=== PATIENT | female | born 1980 | race Caucasian/White ===

== ENCOUNTER 2017-10-16 14:51 | Inpatient (IN) | payer BC, OTHER ==
[2017-10-16] MEDS: Iopamidol 612 MG/ML 75 ML Bottle IV ONE (15:00)
[2017-10-16] MEDS ORDERED: Sodium Chloride 0.9% 5 ML Syringe FLUSH PRN ×2 (15:02→18:13)
[2017-10-16] MEDS ORDERED: Sodium Chloride 0.9% 1,000 ML IV ONE (15:02)
[2017-10-16] MEDS ORDERED: Ondansetron 4 MG/2 ML SDV IVPUSH ONE (15:13)
[2017-10-16] MEDS ORDERED: HYDROmorphone 1 MG/ML Syringe IVPUSH ONE (15:13)
--- NOTE | 2017-10-16 15:13 | EDM.PDOC ---
ED HPI GENERAL MEDICAL PROBLEM - General Chief Complaint: Gastrointestinal Problem Stated Complaint: Abdominal pain Time Seen by Provider: 10/16/17 15:03 Source of Information: Reports: Patient History Limitations: Reports: No Limitations - History of Present Illness INITIAL COMMENTS - FREE TEXT/NARRATIVE: 37 YO WF presents to ER complaining of epigastric abdominal pain with bloating and radiation to her back. Pt reports symptoms began last night. Pt states she had associated nausea and vomiting x 2. Pt reports history of pancreatitis in the pasted due to cholecystitis but she is s/p cholecystectomy. Pt states her adbominal pain is similar to pancreatitis but bloating is different. Pt states she took gasX and ducolax suppository without improvement. Pt denies any fever/ chills, no diarrhea. Last normal bowel movement was yesterday. Onset Date: 10/15/17 Duration: Day(s): (2) Location: Reports: Abdomen Quality: Reports: Ache Severity: Moderate Improves with: Reports: Rest Worsens with: Reports: Breathing, Eating, Movement Associated Symptoms: Reports: Nausea/Vomiting. Denies: Chest Pain, Cough, cough w sputum, Fever/Chills, Shortness of Breath Middle Abdominal Pain Score (Numeric/FACES): 10 - Related Data Allergies Allergy/AdvReac Type Severity Reaction Status Date / Time codeine Allergy Nausea and Verified 10/16/17 15:33 Vomiting Sulfa (Sulfonamide Allergy Rash Verified 10/16/17 15:33 Antibiotics) Home Meds: Home Meds Escitalopram [Lexapro] 20 mg PO BEDTIME 03/17/16 [History] metFORMIN [Glucophage] 750 mg PO BIDMEALS@,18 03/17/16 [History] Simvastatin 10 mg PO BEDTIME 07/19/16 [History] Ubidecarenone [Co Q-10] 100 mg PO BEDTIME 07/19/16 [History] sitaGLIPtin Phosphate [Januvia] 100 mg PO BEDTIME 07/19/16 [History] Aspirin [Ecotrin] 81 mg PO BEDTIME 10/16/17 [History] Lisinopril 20 mg PO BEDTIME 10/16/17 [History] Metoprolol Succinate [Toprol XL] 25 mg PO BEDTIME 10/16/17 [History] Norgestimate-Ethinyl Estradiol [Ortho Tri-Cyclen 28 Tablet] 1 tab PO BEDTIME [History] Past Medical History HEENT History: Reports: Impaired Vision Cardiovascular History: Reports: Blood Clots/VTE/DVT, High Cholesterol, Hypertension, Other (See Below) Other Cardiovascular History: blood clots in arm pit s/p picc line Respiratory History: Reports: Asthma Gastrointestinal History: Reports: Cholelithiasis, GERD, Hemorrhoids, Pancreatitis, Other (See Below) Other Gastrointestinal History: fatty liver (none etol related) Genitourinary History: Reports: UTI, Recurrent [employer]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: Reports: Polycystic Ovaries Musculoskeletal History: Reports: Fracture Neurological History: Reports: Migraines Psychiatric History: Reports: Depression Endocrine/Metabolic History: Reports: Diabetes, Type II - Infectious Disease History Infectious Disease History: Reports: Chicken Pox, Influenza, Mononucleosis - Past Surgical History HEENT Surgical History: Reports: Other (See Below) Musculoskeletal Surgical History: Reports: Arthroscopic Procedure Social & Family History - Tobacco Use Smoking Status *Q: Never Smoker Second Hand Smoke Exposure: Yes - Caffeine Use Caffeine Use: Reports: Coffee, Soda - Recreational Drug Use Recreational Drug Use: No ED ROS GENERAL - Review of Systems Review Of Systems: See Below Constitutional: Reports: No Symptoms, Decreased Appetite HEENT: Reports: No Symptoms Respiratory: Reports: No Symptoms Cardiovascular: Reports: No Symptoms Endocrine: Reports: No Symptoms GI/Abdominal: Reports: Abdominal Pain, Constipation, Decreased Appetite, Distension, Nausea, Vomiting. Denies: Black Stool, Bloody Stool, Diarrhea, Hematemesis, Hematochezia Musculoskeletal: Reports: No Symptoms Skin: Reports: No Symptoms Neurological: Reports: No Symptoms Psychiatric: Reports: No Symptoms Hematologic/Lymphatic: Reports: No Symptoms Immunologic: Reports: No Symptoms ED EXAM, GI/ABD - Physical Exam Exam: See Below Exam Limited By: No Limitations General Appearance: Alert, WD/WN, No Apparent Distress Head: Atraumatic, Normocephalic Neck: Normal Inspection, Supple, Non-Tender, Full Range of Motion Respiratory/Chest: No Respiratory Distress, Lungs Clear, Normal Breath Sounds, No Accessory Muscle Use, Chest Non-Tender Cardiovascular: Normal Peripheral Pulses, Regular Rate, Rhythm, No Edema, No Gallop, No JVD, No Murmur, No Rub GI/Abdominal Exam: Soft, No Organomegaly, No Abnormal Bruit, No Mass, Pelvis Stable, Distended, Tender (generalized but worse in epigastrium), Other ( hypoactive bowel sounds). No: Normal Bowel Sounds, Non-Tender, No Distention Back Exam: Normal Inspection, Full Range of Motion, NT Extremities: Normal Inspection, Normal Range of Motion, Non-Tender, Normal Capillary Refill, No Pedal Edema Neurological: Alert, Oriented, CN II-XII Intact, Normal Cognition, Normal Gait, Normal Reflexes, No Motor/Sensory Deficits Course - Vital Signs Last Recorded V/S: Last Vital Signs Temp 36.6 C 10/16/17 15:30 Pulse 122 H 10/16/17 15:30 Resp 16 10/16/17 15:30 BP 140/84 10/16/17 15:30 Pulse Ox 97 10/16/17 15:30 - Orders/Labs/Meds Orders: Active Orders 24 hr Category Date Time Status Peripheral IV Care [RC] . DIRECTED Care 10/16/17 15:02 Active Abdomen Pelvis w Cont [CT] Stat Exams 10/16/17 15:13 Taken UA W/MICROSCOPIC [URIN] Stat Lab 10/16/17 15:42 Ordered Sodium Chloride 0.9% [Normal Saline] 50 ml Med 10/16/17 16:00 Active IV ASDIRECTED Sodium Chloride 0.9% [Syrex Flush] Med 10/16/17 15:02 Active 5 ml FLUSH Q8HR PRN Peripheral IV Insertion Adult [OM.PC] Routine Oth 10/16/17 15:02 Ordered Medication Orders Sodium Chloride (Normal Saline) 50 mls @ 200 mls/hr IV ASDIRECTED ABRAHAM Sodium Chloride (Syrex Flush) 5 ml FLUSH Q8HR PRN PRN Reason: Keep Vein Open Labs: Laboratory Tests 10/16/17 10/16/17 10/16/17 Range/Units 15:15 15:15 15:42 WBC 19.4 H (5.0-10.0) 10^3/uL RBC 5.17 (3.80-5.50) 10^6/uL Hgb 14.8 (12.0-16.0) g/dL Hct 43.9 (37.0-47.0) % MCV 84.9 D (82.0-92.0) fL MCH 28.6 (27.0-31.0) pg MCHC 33.7 (32.0-36.0) g/dL RDW 14.5 (11.5-14.5) % Plt Count 309 H D (150-300) 10^3/uL MPV 8.2 (7.4-10.4) fL Neut % (Auto) 72.3 H (50.0-70.0) % Lymph % (Auto) 22.4 (20.0-40.0) % Amelia % (Auto) 3.6 (2.0-8.0) % Eos % (Auto) 1.1 (1.0-3.0) % Baso % (Auto) 0.6 (0.0-1.0) % Neut # (Auto) 14.1 H (2.5-7.0) 10^3/uL Lymph # (Auto) 4.3 H (1.0-4.0) 10^3/uL Amelia # (Auto) 0.7 (0.1-0.8) 10^3/uL Eos # (Auto) 0.2 (0.1-0.3) 10^3/uL Baso # (Auto) 0.1 (0.0-0.1) 10^3/uL Sodium 143 (136-145) mmol/L Potassium 4.0 (3.3-5.3) mmol/L Chloride 102 (98-115) mmol/L Carbon Dioxide 23.4 (21.0-32.0) mmol/L BUN 9 (6-25) mg/dL Creatinine 0.57 (0.51-1.17) mg/dL Est Cr Clr Drug Dosing 134.99 mL/min Estimated GFR (MDRD) > 60 mL/min Glucose 160 H (70-110) mg/dL Calcium 9.4 (8.7-10.3) mg/dL Total Bilirubin 0.6 (0.2-1.0) mg/dL AST 23 (15-37) U/L ALT 21 (12-78) U/L Alkaline Phosphatase 69 (46-116) IU/L Total Protein 8.5 H (6.4-8.2) g/dL Albumin 3.53 (3.00-4.80) g/dL Lipase 144 (73-393) U/L HCG, Qual Negative (NEGATIVE) Specimen Type Urinvoid Urine Color Yellow (YELLOW) Urine Appearance Slightly cloudy H (CLEAR) Urine pH 5.5 (5.0-9.0) Ur Specific [place] >= 1.030 (1.005-1.030) Urine Protein 30 H (NEGATIVE) mg/dL Urine Glucose (UA) Negative (NEGATIVE) mg/dL Urine Ketones 40 H (NEGATIVE) mg/dL Urine Occult Blood Trace-intact H (NEGATIVE) Urine Nitrite Negative (NEGATIVE) Urine Bilirubin Small H (NEGATIVE) Urine Urobilinogen 0.2 (0.2-1.0) E.U./dL Ur Leukocyte Esterase Negative (NEGATIVE) Urine RBC 0-5 /HPF Urine WBC 5-10 H /HPF Ur Epithelial Cells Moderate H /LPF Amorphous Sediment Few (0/HPF) /HPF Urine Bacteria Moderate H (NONE TO FEW) /HPF Meds: Medications Generic Name Dose Route Start Last Admin Trade Name Freq PRN Reason Stop Dose Admin Sodium Chloride 50 mls @ 200 mls/hr 10/16/17 16:00 Normal Saline IV ASDIRECTED ABRAHAM Sodium Chloride 5 ml 10/16/17 15:02 Syrex Flush FLUSH Q8HR PRN Keep Vein Open Discontinued Medications Generic Name Dose Route Start Last Admin Trade Name Freq PRN Reason Stop Dose Admin Hydromorphone HCl 1 mg 10/16/17 15:13 10/16/17 15:25 Dilaudid IVPUSH 10/16/17 15:14 1 mg ONETIME ONE Administration Sodium Chloride 1,000 mls @ 999 mls/hr 10/16/17 15:02 10/16/17 15:18 Normal Saline IV 10/16/17 16:02 999 mls/hr .BOLUS ONE Administration Iopamidol 75 ml 10/16/17 15:59 Isovue-300 (61%) IV 10/16/17 16:00 ONETIME ONE Ondansetron HCl 4 mg 10/16/17 15:13 10/16/17 15:19 Zofran IVPUSH 10/16/17 15:14 4 mg ONETIME ONE Administration - Radiology Interpretation Free Text/Narrative:: CT Abd/Pelvis- enteritis, and mild retrosigmoid colitis. Departure - Departure Time of Disposition: 18:11 Disposition: Admitted As Inpatient 65 Condition: Fair Clinical Impression: Gastroenteritis, Colitis Urinary tract infection Qualifiers: Urinary tract infection type: acute cystitis Hematuria presence: without hematuria Qualified Code(s): N30.00 - Acute cystitis without hematuria - Discharge Information Referrals: Eryn Bar, THERM[facility]OLDER [Primary Care Provider] - Forms: ED Department Discharge - My Orders Last 24 Hours: My Active Orders 10/16/17 15:02 Peripheral IV Care [RC] . DIRECTED Sodium Chloride 0.9% [Syrex Flush] 5 ml FLUSH Q8HR PRN Peripheral IV Insertion Adult [OM.PC] Routine 10/16/17 15:13 Abdomen Pelvis w Cont [CT] Stat 10/16/17 15:42 UA W/MICROSCOPIC [URIN] Stat 10/16/17 16:00 Sodium Chloride 0.9% [Normal Saline] 50 ml IV ASDIRECTED - Assessment/Plan Last 24 Hours: My Active Orders 10/16/17 15:02 Peripheral IV Care [RC] . DIRECTED Sodium Chloride 0.9% [Syrex Flush] 5 ml FLUSH Q8HR PRN Peripheral IV Insertion Adult [OM.PC] Routine 10/16/17 15:13 Abdomen Pelvis w Cont [CT] Stat 10/16/17 15:42 UA W/MICROSCOPIC [URIN] Stat 10/16/17 16:00 Sodium Chloride 0.9% [Normal Saline] 50 ml IV ASDIRECTED Assessment:: 1. enteritis 2. colitis 3. urinary tract infection Plan: 1. admit to [facility] for colitis 2. flagyl/cipro 3. dilaudid/zofran 4. IVF/NPO
[2017-10-16 15:42] LABS: CHLORIDE,CL 102 mmol/L (98-115); SODIUM,NA 143 mmol/L (136-145)
[2017-10-16] MEDS ORDERED: Sodium Chloride 0.9% 50 ML IV SCH (16:00)
[2017-10-16] MEDS ORDERED: Ondansetron 4 MG/2 ML SDV IV PRN (18:13)
[2017-10-16] MEDS ORDERED: HYDROmorphone 2 MG/ML SDV IVPUSH PRN (18:13)
[2017-10-16] MEDS ORDERED: metroNIDAZOLE/Normal Saline 500 MG in Premix Bag 1 BAG IV SCH (18:15)
[2017-10-16] MEDS ORDERED: HYDROmorphone 1 MG/ML Syringe IVPUSH PRN ×2 (18:48→19:37)
[2017-10-16] MEDS: Ciprofloxacin in D5W 400 MG in Premix Bag 1 BAG IV SCH ×2 (19:00)
[2017-10-16] MEDS: Sodium Chloride 0.9% 1,000 ML IV SCH (19:07)
[2017-10-16] MEDS ORDERED: Ondansetron 4 MG Tab.DIS PO PRN (19:36)
[2017-10-16] MEDS: Metoprolol Succinate 25 MG Tab.ER PO SCH (21:42)
[2017-10-16] MEDS: Escitalopram 10 MG Tab PO SCH (21:42)
[2017-10-16] MEDS: Lisinopril 20 MG Tab PO SCH (21:42)
[2017-10-16] MEDS: Simvastatin 10 MG Tab PO SCH (21:43)
[2017-10-17] MEDS: metroNIDAZOLE/Normal Saline 500 MG in Premix Bag 1 BAG IV SCH ×3 (03:24→19:49)
[2017-10-17] MEDS: Ciprofloxacin in D5W 400 MG in Premix Bag 1 BAG IV SCH ×4 (05:46→18:16)
[2017-10-17] MEDS: Sodium Chloride 0.9% 1,000 ML IV SCH (05:53)
[2017-10-17] MEDS: Iopamidol 612 MG/ML 75 ML Bottle IV ONE (07:16)
[2017-10-17 07:45] LABS: CHLORIDE,CL 107 mmol/L (98-115); SODIUM,NA 144 mmol/L (136-145)
--- NOTE | 2017-10-17 11:05 | PCM.HP ---
H&P History of Present Illness - General Date of Service: 10/16/17 Admit Problem/Dx: Admission Diagnosis/Problem Admission Diagnosis/Problem Colitis Source of Information: Patient, Provider, RN History Limitations: Reports: No Limitations - History of Present Illness Initial Comments - Free Text/Narative: This 37-year-old female was admitted through the ED due to colitis/enteritis. She been having 1 day abdominal pain with abdominal distention boring through into her back as she does have a history of biliary induced pancreatitis-- subsequent cholecystectomy and she felt this was very similar type pain. She stated her symptoms began last night when she vomited a couple times and she had some nausea. She took OTC gas-X and ducolax suppository without improvement. Pt denies any fever/chills, no diarrhea. Last normal bowel movement was yesterday. Middle Abdominal Pain Score (Numeric/FACES): 10 - Related Data Allergies/Adverse Reactions: Allergies Allergy/AdvReac Type Severity Reaction Status Date / Time codeine Allergy Nausea and Verified 10/16/17 15:33 Vomiting Sulfa (Sulfonamide Allergy Rash Verified 10/16/17 15:33 Antibiotics) Home Medications: Home Meds Escitalopram [Lexapro] 20 mg PO BEDTIME 03/17/16 [History] metFORMIN [Glucophage] 750 mg PO BIDMEALS@,18 03/17/16 [History] Simvastatin 10 mg PO BEDTIME 07/19/16 [History] Ubidecarenone [Co Q-10] 100 mg PO BEDTIME 07/19/16 [History] sitaGLIPtin Phosphate [Januvia] 100 mg PO BEDTIME 07/19/16 [History] Aspirin [Ecotrin] 81 mg PO BEDTIME 10/16/17 [History] Lisinopril 20 mg PO BEDTIME 10/16/17 [History] Metoprolol Succinate [Toprol XL] 25 mg PO BEDTIME 10/16/17 [History] Norgestimate-Ethinyl Estradiol [Ortho Tri-Cyclen 28 Tablet] 1 tab PO BEDTIME [History] Ciprofloxacin HCl [Cipro] 500 mg PO BID #8 tablet 10/18/17 [Rx] metroNIDAZOLE [Flagyl] 500 mg PO Q8H #9 tab 10/18/17 [Rx] Past Medical History HEENT History: Reports: Impaired Vision Cardiovascular History: Reports: Blood Clots/VTE/DVT, High Cholesterol, Hypertension, Other (See Below) Other Cardiovascular History: blood clots in arm pit s/p picc line Respiratory History: Reports: Asthma Gastrointestinal History: Reports: Cholelithiasis, GERD, Hemorrhoids, Pancreatitis, Other (See Below) Other Gastrointestinal History: fatty liver (none etol related) Genitourinary History: Reports: UTI, Recurrent 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: 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: Polycystic Ovaries Musculoskeletal History: Reports: Fracture Neurological History: Reports: Migraines Psychiatric History: Reports: Depression Endocrine/Metabolic History: Reports: Diabetes, Type II Hematologic History: Reports: Anesthesia Reaction - Infectious Disease History Infectious Disease History: Reports: Chicken Pox, Influenza, Mononucleosis - Past Surgical History Head Surgeries/Procedures: Reports: None HEENT Surgical History: Reports: Other (See Below) Musculoskeletal Surgical History: Reports: Arthroscopic Procedure Dermatological Surgical History: Reports: None Social & Family History - Family History HEENT: Reports: None Cardiac: Reports: None Respiratory: Reports: None GI: Reports: None : Reports: None OBGYN: Reports: None Neurological: Reports: None Endocrine/Metabolic: Reports: Diabetes, type II - Tobacco Use Smoking Status *Q: Never Smoker Second Hand Smoke Exposure: Yes - Caffeine Use Caffeine Use: Reports: Coffee, Soda - Recreational Drug Use Recreational Drug Use: No H&P Review of Systems - Review of Systems: Review Of Systems: See Below General: Reports: Decreased Appetite. Denies: Fever, Malaise, Weakness, Night Sweats HEENT: Reports: No Symptoms Pulmonary: Reports: No Symptoms Cardiovascular: Reports: No Symptoms Gastrointestinal: Reports: Abdominal Pain, Anorexia, Constipation, Decreased Appetite, Distension, Nausea, Vomiting. Denies: Diarrhea Genitourinary: Denies: Dysuria, Frequency, Incontinence, Hematuria, Retention Musculoskeletal: Reports: No Symptoms Skin: Reports: Dryness Psychiatric: Reports: No Symptoms Neurological: Reports: No Symptoms Hematologic/Lymphatic: Reports: No Symptoms Immunologic: Reports: No Symptoms Exam - Exam Exam: See Below - Vital Signs Vital Signs: Last Vital Signs Temp 99.5 F 10/17/17 06:34 Pulse 72 10/17/17 06:34 Resp 18 10/17/17 06:34 BP 100/60 10/17/17 06:34 Pulse Ox 96 10/17/17 06:34 Weight: 193 lb 8 oz - Exam Quality Assessment: No: Supplemental Oxygen General: Alert, Oriented, 4 HEENT: Other (Dry lips dry tongue mucous membranes) Neck: Supple, Trachea Midline, 2 Lungs: Clear to Auscultation, Normal Respiratory Effort Cardiovascular: Regular Rate, Regular Rhythm GI/Abdominal Exam: No Mass, Distended, Tender. No: Normal Bowel Sounds, Soft, Guarding, Rigid, Rebound, Splenomegaly (Female) Exam: Deferred Rectal (Female) Exam: Deferred Back Exam: No: CVA Tenderness (L), CVA Tenderness (R) Extremities: No Pedal Edema Peripheral Pulses: 2+: Radial (L), Radial (R) Skin: Dry. No: Rash Neurological: Cranial Nerves Intact, Reflexes Equal Bilateral Neuro Extensive - Mental Status: Alert, Oriented x3, Normal Mood/Affect, Normal Cognition Neuro Extensive - Motor, Sensory, Reflexes: CN II-XII Intact, Normal Gait, Normal Reflexes Psychiatric: Alert, Normal Affect, Normal Mood - Patient Data Lab Results Last 24 hrs: Laboratory Results - last 24 hr 10/16/17 10/16/17 10/16/17 Range/Units 15:15 15:15 15:42 WBC 19.4 H (5.0-10.0) 10^3/uL RBC 5.17 (3.80-5.50) 10^6/uL Hgb 14.8 (12.0-16.0) g/dL Hct 43.9 (37.0-47.0) % MCV 84.9 D (82.0-92.0) fL MCH 28.6 (27.0-31.0) pg MCHC 33.7 (32.0-36.0) g/dL RDW 14.5 (11.5-14.5) % Plt Count 309 H D (150-300) 10^3/uL MPV 8.2 (7.4-10.4) fL Neut % (Auto) 72.3 H (50.0-70.0) % Lymph % (Auto) 22.4 (20.0-40.0) % Bradley % (Auto) 3.6 (2.0-8.0) % Eos % (Auto) 1.1 (1.0-3.0) % Baso % (Auto) 0.6 (0.0-1.0) % Neut # (Auto) 14.1 H (2.5-7.0) 10^3/uL Lymph # (Auto) 4.3 H (1.0-4.0) 10^3/uL Bradley # (Auto) 0.7 (0.1-0.8) 10^3/uL Eos # (Auto) 0.2 (0.1-0.3) 10^3/uL Baso # (Auto) 0.1 (0.0-0.1) 10^3/uL Sodium 143 (136-145) mmol/L Potassium 4.0 (3.3-5.3) mmol/L Chloride 102 (98-115) mmol/L Carbon Dioxide 23.4 (21.0-32.0) mmol/L BUN 9 (6-25) mg/dL Creatinine 0.57 (0.51-1.17) mg/dL Est Cr Clr Drug Dosing 134.99 mL/min Estimated GFR (MDRD) > 60 mL/min Glucose 160 H (70-110) mg/dL POC Glucose (74-106) mg/dl Calcium 9.4 (8.7-10.3) mg/dL Total Bilirubin 0.6 (0.2-1.0) mg/dL AST 23 (15-37) U/L ALT 21 (12-78) U/L Alkaline Phosphatase 69 (46-116) IU/L Total Protein 8.5 H (6.4-8.2) g/dL Albumin 3.53 (3.00-4.80) g/dL Lipase 144 (73-393) U/L HCG, Qual Negative (NEGATIVE) Specimen Type Urinvoid Urine Color Yellow (YELLOW) Urine Appearance Slightly cloudy H (CLEAR) Urine pH 5.5 (5.0-9.0) Ur Specific [place] >= 1.030 (1.005-1.030) Urine Protein 30 H (NEGATIVE) mg/dL Urine Glucose (UA) Negative (NEGATIVE) mg/dL Urine Ketones 40 H (NEGATIVE) mg/dL Urine Occult Blood Trace-intact H (NEGATIVE) Urine Nitrite Negative (NEGATIVE) Urine Bilirubin Small H (NEGATIVE) Urine Urobilinogen 0.2 (0.2-1.0) E.U./dL Ur Leukocyte Esterase Negative (NEGATIVE) Urine RBC 0-5 /HPF Urine WBC 5-10 H /HPF Ur Epithelial Cells Moderate H /LPF Amorphous Sediment Few (0/HPF) /HPF Urine Bacteria Moderate H (NONE TO FEW) /HPF 10/16/17 10/17/17 10/17/17 Range/Units 21:48 07:10 07:10 WBC 10.5 H (5.0-10.0) 10^3/uL RBC 3.85 (3.80-5.50) 10^6/uL Hgb 10.8 L D (12.0-16.0) g/dL Hct 33.1 L (37.0-47.0) % MCV 85.9 (82.0-92.0) fL MCH 28.0 (27.0-31.0) pg MCHC 32.7 (32.0-36.0) g/dL RDW 14.7 H (11.5-14.5) % Plt Count 181 D (150-300) 10^3/uL MPV 8.2 (7.4-10.4) fL Neut % (Auto) 56.5 (50.0-70.0) % Lymph % (Auto) 33.2 (20.0-40.0) % Bradley % (Auto) 6.3 (2.0-8.0) % Eos % (Auto) 3.2 H (1.0-3.0) % Baso % (Auto) 0.8 (0.0-1.0) % Neut # (Auto) 5.9 (2.5-7.0) 10^3/uL Lymph # (Auto) 3.5 (1.0-4.0) 10^3/uL Bradley # (Auto) 0.7 (0.1-0.8) 10^3/uL Eos # (Auto) 0.3 (0.1-0.3) 10^3/uL Baso # (Auto) 0.1 (0.0-0.1) 10^3/uL Sodium 144 (136-145) mmol/L Potassium 3.8 (3.3-5.3) mmol/L Chloride 107 (98-115) mmol/L Carbon Dioxide 26.1 (21.0-32.0) mmol/L BUN 8 (6-25) mg/dL Creatinine 0.60 (0.51-1.17) mg/dL Est Cr Clr Drug Dosing 128.24 mL/min Estimated GFR (MDRD) > 60 mL/min Glucose 147 H (70-110) mg/dL POC Glucose 124 H (74-106) mg/dl Calcium 8.0 L (8.7-10.3) mg/dL Total Bilirubin 0.4 (0.2-1.0) mg/dL AST 23 (15-37) U/L ALT 21 (12-78) U/L Alkaline Phosphatase 50 (46-116) IU/L Total Protein 6.6 (6.4-8.2) g/dL Albumin 2.62 L (3.00-4.80) g/dL Lipase (73-393) U/L HCG, Qual (NEGATIVE) Specimen Type Urine Color (YELLOW) Urine Appearance (CLEAR) Urine pH (5.0-9.0) Ur Specific [place] (1.005-1.030) Urine Protein (NEGATIVE) mg/dL Urine Glucose (UA) (NEGATIVE) mg/dL Urine Ketones (NEGATIVE) mg/dL Urine Occult Blood (NEGATIVE) Urine Nitrite (NEGATIVE) Urine Bilirubin (NEGATIVE) Urine Urobilinogen (0.2-1.0) E.U./dL Ur Leukocyte Esterase (NEGATIVE) Urine RBC /HPF Urine WBC /HPF Ur Epithelial Cells /LPF Amorphous Sediment (0/HPF) /HPF Urine Bacteria (NONE TO FEW) /HPF Result Diagrams: 10/18/17 07:20 10/18/17 07:20 Problem List Initiated/Reviewed/Updated: Yes Orders Last 24hrs: Active Orders 24 hr Category Date Time Status Patient Status [ADT] Routine ADT 10/16/17 18:13 Ordered Activity as Tolerated [RC] .Routine Care 10/16/17 20:28 Active Oxygen Therapy [RC] .PRN Care 10/16/17 18:13 Active Vital Signs [RC] 0300,0700,1100,1500,1900,2300 Care 10/16/17 18:13 Active Abdomen Pelvis w Cont [CT] Stat Exams 10/16/17 15:13 Taken Ciprofloxacin in D5W [Cipro in D5W 400 MG/200 ML] 400 Med 10/16/17 18:15 Active mg Premix Bag 1 bag IV Q12H Escitalopram [Lexapro] Med 10/16/17 21:00 Active 20 mg PO BEDTIME HYDROmorphone [Dilaudid] Med 10/16/17 19:37 Active 0.5 - 1 mg IVPUSH Q2H PRN Lisinopril [Prinivil] Med 10/16/17 21:00 Active 20 mg PO BEDTIME Metoprolol Succinate [Toprol XL] Med 10/16/17 21:00 Active 25 mg PO BEDTIME Ondansetron [Zofran ODT] Med 10/16/17 19:36 Active 4 mg PO Q4H PRN Simvastatin [Zocor] Med 10/16/17 21:00 Active 10 mg PO BEDTIME SitaGLIPtin [Januvia] Med 10/16/17 21:00 Active 100 mg PO BEDTIME Sodium Chloride 0.9% [Normal Saline] 1,000 ml Med 10/16/17 18:15 Active IV ASDIRECTED Sodium Chloride 0.9% [Syrex Flush] Med 10/16/17 18:13 Active 5 ml FLUSH Q8HR PRN metroNIDAZOLE/Normal Saline [Flagyl 500 MG in NS 100 ML Med 10/17/17 04:00 Active ] 500 mg Premix Bag 1 bag IV Q8H Peripheral IV Insertion Adult [OM.PC] Routine Oth 10/16/17 18:13 Ordered GERMAINE Hose [Antiembolic Hose] [OM.PC] Routine Oth 10/16/17 20:29 Ordered Resuscitation Status Routine Resus Stat 10/16/17 18:13 Ordered Medication Orders Escitalopram Oxalate (Lexapro) 20 mg PO BEDTIME [facility] Last Admin: 10/16/17 21:42 Dose: 20 mg Hydromorphone HCl (Dilaudid) 0.5 - 1 mg IVPUSH Q2H PRN PRN Reason: Pain (severe 7-10) Last Admin: 10/16/17 21:51 Dose: 0.5 mg Ciprofloxacin/Dextrose 400 mg/ (Premix) 200 mls @ 200 mls/hr IV Q12H ABRAHAM Last Admin: 10/17/17 05:46 Dose: 200 mls/hr Infusion: 10/16/17 20:00 Dose: 200 mls/hr Admin: 10/16/17 19:00 Dose: 200 mls/hr Sodium Chloride (Normal Saline) 1,000 mls @ 125 mls/hr IV ASDIRECTED ABRAHAM Last Admin: 10/17/17 05:53 Dose: 125 mls/hr Infusion: 10/17/17 03:07 Dose: 125 mls/hr Admin: 10/16/17 19:07 Dose: 125 mls/hr Metronidazole 500 mg/ Premix 100 mls @ 100 mls/hr IV Q8H ABRAHAM Last Admin: 10/17/17 03:24 Dose: 100 mls/hr Lisinopril (Prinivil) 20 mg PO BEDTIME ABRAHAM Last Admin: 10/16/17 21:42 Dose: 20 mg Metoprolol Succinate (Toprol Xl) 25 mg PO BEDTIME ABRAHAM Last Admin: 10/16/17 21:42 Dose: 25 mg Ondansetron HCl (Zofran Odt) 4 mg PO Q4H PRN PRN Reason: Nausea/Vomiting Last Admin: 10/16/17 20:16 Dose: 4 mg Simvastatin (Zocor) 10 mg PO BEDTIME ABRAHAM Last Admin: 10/16/17 21:43 Dose: 10 mg Sitagliptin Phosphate (Januvia) 100 mg PO BEDTIME ABRAHAM Last Admin: 10/16/17 21:48 Dose: 100 mg Sodium Chloride (Syrex Flush) 5 ml FLUSH Q8HR PRN PRN Reason: Keep Vein Open Assessment/Plan Comment:: HISTORY OF PRESENT ILLNESS This 37-year-old female was admitted through the ED due to colitis/enteritis. She been having 1 day abdominal pain with abdominal distention boring through into her back as she does have a history of biliary induced pancreatitis-- subsequent cholecystectomy and she felt this was very similar type pain. She stated her symptoms began last night when she vomited a couple times and she had some nausea. She took OTC gas-X and ducolax suppository without improvement. Pt denies any fever/chills, no diarrhea. Last normal bowel movement was yesterday. Pertinent ED workup White count 19,000 Neutrophilia Lipase 144--normal LFTs, normal UA, positive for bacteria/infection Abdomen pelvis CT with contrast, moderate enteritis mid to distal small bowel with mild rectosigmoid colitis, no abscess or free air, small amount of free fluid in abdomen and pelvis, lobular liver and splenomegaly, no lymphadenopathy , pancreas adrenal glands and kidneys and appendix normal in appearance Primary problems Colitis, enteritis Dehydration Urinary tract infection Chronic problems T2DM; hold Metformin, can cont with Januvia, HTN; stable with metoprolol, LOVELY inhibitor (on OCP, hCG negative) HLD, statin therapy, CoQ10, depression, stable on Lexapro History of biliary pancreatitis status post cholecystectomy Overall plan tonight, Start anaerobic coverage and ciprofloxacin tonight, isotonic saline at 125 mL per hour. Ice chips only for tonight. Pain management , Monitor for any complications, peritonitis, perforation, fever, hemodynamic instability, the need for surgical consultation/obstruction. Hold aspirin and metformin DVD prophylaxis, SCDs and EGRMAINE stockings See her back in the morning. Labs in the a.m.
[2017-10-17] MEDS ORDERED: Sodium Chloride 0.9% 1,000 ML IV SCH (11:45)
--- NOTE | 2017-10-17 11:52 | PCM.PN ---
- General Info Date of Service: 10/17/17 Subjective Update: Update, patient much improved, less abdominal pain, less nausea, no vomiting, white count decreased by 50%, feeling much better, low-grade fever last night, minimal pain medication needed, Functional Status: Reports: Pain Controlled, Urinating. Denies: Tolerating Diet , Ambulating, New Symptoms - Review of Systems General: Denies: Fever (Low-grade temperature last night) HEENT: Reports: No Symptoms Pulmonary: Reports: No Symptoms Cardiovascular: Reports: No Symptoms Gastrointestinal: Denies: Abdominal Pain, Constipation, Decreased Appetite, Nausea, Vomiting - Patient Data Vitals - Most Recent: Last Vital Signs Temp 98.2 F 10/17/17 11:00 Pulse 85 10/17/17 11:00 Resp 16 10/17/17 11:00 BP 130/77 10/17/17 11:00 Pulse Ox 98 10/17/17 11:00 Weight - Most Recent: 193 lb 8 oz I&O - Last 24 Hours: Intake & Output 10/16/17 10/17/17 10/17/17 22:59 06:59 14:59 Intake Total 1756 1190 Balance 1756 1190 Lab Results Last 24 Hours: Laboratory Results - last 24 hr 10/16/17 10/16/17 10/16/17 Range/Units 15:15 15:15 15:42 WBC 19.4 H (5.0-10.0) 10^3/uL RBC 5.17 (3.80-5.50) 10^6/uL Hgb 14.8 (12.0-16.0) g/dL Hct 43.9 (37.0-47.0) % MCV 84.9 D (82.0-92.0) fL MCH 28.6 (27.0-31.0) pg MCHC 33.7 (32.0-36.0) g/dL RDW 14.5 (11.5-14.5) % Plt Count 309 H D (150-300) 10^3/uL MPV 8.2 (7.4-10.4) fL Neut % (Auto) 72.3 H (50.0-70.0) % Lymph % (Auto) 22.4 (20.0-40.0) % Ford % (Auto) 3.6 (2.0-8.0) % Eos % (Auto) 1.1 (1.0-3.0) % Baso % (Auto) 0.6 (0.0-1.0) % Neut # (Auto) 14.1 H (2.5-7.0) 10^3/uL Lymph # (Auto) 4.3 H (1.0-4.0) 10^3/uL Ford # (Auto) 0.7 (0.1-0.8) 10^3/uL Eos # (Auto) 0.2 (0.1-0.3) 10^3/uL Baso # (Auto) 0.1 (0.0-0.1) 10^3/uL Sodium 143 (136-145) mmol/L Potassium 4.0 (3.3-5.3) mmol/L Chloride 102 (98-115) mmol/L Carbon Dioxide 23.4 (21.0-32.0) mmol/L BUN 9 (6-25) mg/dL Creatinine 0.57 (0.51-1.17) mg/dL Est Cr Clr Drug Dosing 134.99 mL/min Estimated GFR (MDRD) > 60 mL/min Glucose 160 H (70-110) mg/dL POC Glucose (74-106) mg/dl Calcium 9.4 (8.7-10.3) mg/dL Total Bilirubin 0.6 (0.2-1.0) mg/dL AST 23 (15-37) U/L ALT 21 (12-78) U/L Alkaline Phosphatase 69 (46-116) IU/L Total Protein 8.5 H (6.4-8.2) g/dL Albumin 3.53 (3.00-4.80) g/dL Lipase 144 (73-393) U/L HCG, Qual Negative (NEGATIVE) Specimen Type Urinvoid Urine Color Yellow (YELLOW) Urine Appearance Slightly cloudy H (CLEAR) Urine pH 5.5 (5.0-9.0) Ur Specific [place] >= 1.030 (1.005-1.030) Urine Protein 30 H (NEGATIVE) mg/dL Urine Glucose (UA) Negative (NEGATIVE) mg/dL Urine Ketones 40 H (NEGATIVE) mg/dL Urine Occult Blood Trace-intact H (NEGATIVE) Urine Nitrite Negative (NEGATIVE) Urine Bilirubin Small H (NEGATIVE) Urine Urobilinogen 0.2 (0.2-1.0) E.U./dL Ur Leukocyte Esterase Negative (NEGATIVE) Urine RBC 0-5 /HPF Urine WBC 5-10 H /HPF Ur Epithelial Cells Moderate H /LPF Amorphous Sediment Few (0/HPF) /HPF Urine Bacteria Moderate H (NONE TO FEW) /HPF 10/16/17 10/17/17 10/17/17 Range/Units 21:48 07:10 07:10 WBC 10.5 H (5.0-10.0) 10^3/uL RBC 3.85 (3.80-5.50) 10^6/uL Hgb 10.8 L D (12.0-16.0) g/dL Hct 33.1 L (37.0-47.0) % MCV 85.9 (82.0-92.0) fL MCH 28.0 (27.0-31.0) pg MCHC 32.7 (32.0-36.0) g/dL RDW 14.7 H (11.5-14.5) % Plt Count 181 D (150-300) 10^3/uL MPV 8.2 (7.4-10.4) fL Neut % (Auto) 56.5 (50.0-70.0) % Lymph % (Auto) 33.2 (20.0-40.0) % Ford % (Auto) 6.3 (2.0-8.0) % Eos % (Auto) 3.2 H (1.0-3.0) % Baso % (Auto) 0.8 (0.0-1.0) % Neut # (Auto) 5.9 (2.5-7.0) 10^3/uL Lymph # (Auto) 3.5 (1.0-4.0) 10^3/uL Ford # (Auto) 0.7 (0.1-0.8) 10^3/uL Eos # (Auto) 0.3 (0.1-0.3) 10^3/uL Baso # (Auto) 0.1 (0.0-0.1) 10^3/uL Sodium 144 (136-145) mmol/L Potassium 3.8 (3.3-5.3) mmol/L Chloride 107 (98-115) mmol/L Carbon Dioxide 26.1 (21.0-32.0) mmol/L BUN 8 (6-25) mg/dL Creatinine 0.60 (0.51-1.17) mg/dL Est Cr Clr Drug Dosing 128.24 mL/min Estimated GFR (MDRD) > 60 mL/min Glucose 147 H (70-110) mg/dL POC Glucose 124 H (74-106) mg/dl Calcium 8.0 L (8.7-10.3) mg/dL Total Bilirubin 0.4 (0.2-1.0) mg/dL AST 23 (15-37) U/L ALT 21 (12-78) U/L Alkaline Phosphatase 50 (46-116) IU/L Total Protein 6.6 (6.4-8.2) g/dL Albumin 2.62 L (3.00-4.80) g/dL Lipase (73-393) U/L HCG, Qual (NEGATIVE) Specimen Type Urine Color (YELLOW) Urine Appearance (CLEAR) Urine pH (5.0-9.0) Ur Specific [place] (1.005-1.030) Urine Protein (NEGATIVE) mg/dL Urine Glucose (UA) (NEGATIVE) mg/dL Urine Ketones (NEGATIVE) mg/dL Urine Occult Blood (NEGATIVE) Urine Nitrite (NEGATIVE) Urine Bilirubin (NEGATIVE) Urine Urobilinogen (0.2-1.0) E.U./dL Ur Leukocyte Esterase (NEGATIVE) Urine RBC /HPF Urine WBC /HPF Ur Epithelial Cells /LPF Amorphous Sediment (0/HPF) /HPF Urine Bacteria (NONE TO FEW) /HPF Med Orders - Current: Current Medications Escitalopram Oxalate (Lexapro) 20 mg PO BEDTIME [facility] Last Admin: 10/16/17 21:42 Dose: 20 mg Hydromorphone HCl (Dilaudid) 0.5 - 1 mg IVPUSH Q2H PRN PRN Reason: Pain (severe 7-10) Last Admin: 10/16/17 21:51 Dose: 0.5 mg Ciprofloxacin/Dextrose 400 mg/ (Premix) 200 mls @ 200 mls/hr IV Q12H [facility] Last Admin: 10/17/17 05:46 Dose: 200 mls/hr Metronidazole 500 mg/ Premix 100 mls @ 100 mls/hr IV Q8H [facility] Last Admin: 10/17/17 03:24 Dose: 100 mls/hr Sodium Chloride (Normal Saline) 1,000 mls @ 100 mls/hr IV ASDIRECTED [facility] Lisinopril (Prinivil) 20 mg PO BEDTIME [facility] Last Admin: 10/16/17 21:42 Dose: 20 mg Metoprolol Succinate (Toprol Xl) 25 mg PO BEDTIME [facility] Last Admin: 10/16/17 21:42 Dose: 25 mg Ondansetron HCl (Zofran Odt) 4 mg PO Q4H PRN PRN Reason: Nausea/Vomiting Last Admin: 10/16/17 20:16 Dose: 4 mg Simvastatin (Zocor) 10 mg PO BEDTIME [facility] Last Admin: 10/16/17 21:43 Dose: 10 mg Sitagliptin Phosphate (Januvia) 100 mg PO BEDTIME [facility] Last Admin: 10/16/17 21:48 Dose: 100 mg Sodium Chloride (Syrex Flush) 5 ml FLUSH Q8HR PRN PRN Reason: Keep Vein Open Discontinued Medications Hydromorphone HCl (Dilaudid) 1 mg IVPUSH ONETIME ONE Stop: 10/16/17 15:14 Last Admin: 10/16/17 15:25 Dose: 1 mg Hydromorphone HCl (Dilaudid) 0.5 mg IVPUSH Q2H PRN PRN Reason: Pain (severe 7-10) Hydromorphone HCl (Dilaudid) 0.5 mg IVPUSH Q2H PRN PRN Reason: Pain (severe 7-10) Sodium Chloride (Normal Saline) 1,000 mls @ 999 mls/hr IV .BOLUS ONE Stop: 10/16/17 16:02 Last Admin: 10/16/17 15:18 Dose: 999 mls/hr Sodium Chloride (Normal Saline) 50 mls @ 200 mls/hr IV ASDIRECTED [facility] Metronidazole 500 mg/ Premix 100 mls @ 100 mls/hr IV Q8H [facility] Last Admin: 10/16/17 20:19 Dose: 100 mls/hr Sodium Chloride (Normal Saline) 1,000 mls @ 125 mls/hr IV ASDIRECTED [facility] Last Admin: 10/17/17 05:53 Dose: 125 mls/hr Iopamidol (Isovue-300 (61%)) 75 ml IV ONETIME ONE Stop: 10/16/17 16:00 Last Admin: 10/17/17 07:16 Dose: Not Given Ondansetron HCl (Zofran) 4 mg IVPUSH ONETIME ONE Stop: 10/16/17 15:14 Last Admin: 10/16/17 15:19 Dose: 4 mg Ondansetron HCl (Zofran) 4 mg IV Q6H PRN PRN Reason: Nausea/Vomiting Sodium Chloride (Syrex Flush) 5 ml FLUSH Q8HR PRN PRN Reason: Keep Vein Open - Exam Quality Assessment: No: Supplemental Oxygen General: Alert, Oriented Neck: Supple Lungs: Clear to Auscultation, Normal Respiratory Effort Cardiovascular: Regular Rate, Regular Rhythm GI/Abdominal Exam: Normal Bowel Sounds, Soft, Non-Tender, No Distention. No: Distended, Guarding, Rigid, Rebound, Tender, Mass (Female) Exam: Deferred Back Exam: No: CVA Tenderness (L), CVA Tenderness (R) Extremities: No Pedal Edema Skin: Warm, Dry, Intact Neurological: No New Focal Deficit Psy/Mental Status: Alert, Normal Affect, Normal Mood - Problem List Review Problem List Initiated/Reviewed/Updated: Yes - My Orders Last 24 Hours: My Active Orders 10/16/17 19:36 Ondansetron [Zofran ODT] 4 mg PO Q4H PRN 10/16/17 19:37 HYDROmorphone [Dilaudid] 0.5 - 1 mg IVPUSH Q2H PRN 10/16/17 20:28 Activity as Tolerated [RC] .Routine 10/16/17 20:29 GERMAINE Hose [Antiembolic Hose] [OM.PC] Routine 10/16/17 21:00 Escitalopram [Lexapro] 20 mg PO BEDTIME Lisinopril [Prinivil] 20 mg PO BEDTIME Metoprolol Succinate [Toprol XL] 25 mg PO BEDTIME Simvastatin [Zocor] 10 mg PO BEDTIME SitaGLIPtin [Januvia] 100 mg PO BEDTIME 10/17/17 04:00 metroNIDAZOLE/Normal Saline [Flagyl 500 MG in NS 100 ML] 500 mg Premix Bag 1 bag IV Q8H 10/17/17 11:45 Sodium Chloride 0.9% @ 100 MLS/HR(1,000ml) Sodium Chloride 0.9% [Normal Saline] 1,000 ml IV ASDIRECTED 10/17/17 Lunch Clear Liquid Diet [DIET] - Plan Plan:: HISTORY OF PRESENT ILLNESS This 37-year-old female was admitted through the ED due to colitis/enteritis. She been having 1 day abdominal pain with abdominal distention boring through into her back as she does have a history of biliary induced pancreatitis-- subsequent cholecystectomy and she felt this was very similar type pain. She stated her symptoms began last night when she vomited a couple times and she had some nausea. She took OTC gas-X and ducolax suppository without improvement. Pt denies any fever/chills, no diarrhea. Last normal bowel movement was yesterday. Pertinent ED workup White count 19,000 Neutrophilia Lipase 144--normal LFTs, normal UA, positive for bacteria/infection Abdomen pelvis CT with contrast, moderate enteritis mid to distal small bowel with mild rectosigmoid colitis, no abscess or free air, small amount of free fluid in abdomen and pelvis, lobular liver and splenomegaly, no lymphadenopathy , pancreas adrenal glands and kidneys and appendix normal in appearance Update today, patient much improved, less abdominal pain, less nausea, no vomiting, white count decreased by 50%, feeling much better, low-grade fever last night, minimal pain medication needed. Having bowel movements, no abdominal distention, good bowel tones now, appetite increasing Primary problems Colitis, enteritis Dehydration Urinary tract infection Chronic problems T2DM; hold Metformin, can cont with Januvia, HTN; stable with metoprolol, LOVELY inhibitor (on OCP, hCG negative) HLD, statin therapy, CoQ10, depression, stable on Lexapro History of biliary pancreatitis status post cholecystectomy Overall plan today, decrease IV fluids, advance to clear liquids, continue antibiotics, ambulate in halls today, Pain management, Monitor for any complications, peritonitis, perforation, fever, hemodynamic instability, the need for surgical consultation/obstruction. Labs in am. DVD prophylaxis, while in bed SCD GERMAINE stockings, ambulating halls today
[2017-10-17] MEDS: Acetaminophen 325 MG Tab PO PRN ×2 (12:32→20:13)
[2017-10-17] MEDS ORDERED: Sodium Chloride 0.9% 250 ML IV SCH (18:00)
[2017-10-17] MEDS: Escitalopram 10 MG Tab PO SCH (21:18)
[2017-10-17] MEDS: Metoprolol Succinate 25 MG Tab.ER PO SCH (21:19)
[2017-10-17] MEDS: Simvastatin 10 MG Tab PO SCH (21:19)
[2017-10-17] MEDS: Lisinopril 20 MG Tab PO SCH (21:19)
[2017-10-18] MEDS: metroNIDAZOLE/Normal Saline 500 MG in Premix Bag 1 BAG IV SCH ×2 (04:03→10:59)
[2017-10-18] MEDS: Ciprofloxacin in D5W 400 MG in Premix Bag 1 BAG IV SCH ×2 (05:58)
[2017-10-18 07:42] LABS: CHLORIDE,CL 106 mmol/L (98-115); SODIUM,NA 142 mmol/L (136-145)
[2017-10-18 11:03] VITALS: BP 117/72
--- NOTE | 2017-10-20 09:44 | DISCH ---
FINAL DIAGNOSIS: Colitis and enteritis, clinically improving. Dehydration, resolved. Urinary tract infection, clinically improving. Chronic problems include type 2 diabetes. Holding metformin. Continue with Januvia. Hypertension, stable. Hyperlipidemia, statin therapy, CoQ10. Depression, stable on Lexapro. Pertinent history includes biliary pancreatitis in the past with status post cholecystectomy. HISTORY OF PRESENT ILLNESS: This 37-year-old female was admitted to the ED due to colitis and enteritis. She had been having about a one day abdominal pain abdominal distention that seemed to be bore through her back and she does have a history of biliary induced pancreatitis with subsequent cholecystectomy as she felt this was very similar type pain. She stated her symptoms began the night before she came in with some vomiting a couple of times with associated and accompanying nausea. She took [id number] Gas-X and Dulcolax suppository without improvement. She had no fever. No chills. No diarrhea. Last bowel movement was prior to her coming in. However, she has had bowel movements here. Pertinent ED workup included a white count of 19,000 with some neutrophilia. Lipase normal at 144. LFTs were normal. However, she had incidental UA which was positive for bacteria and UTI. Abdominal pelvic CT with contrast, moderate enteritis with mid to distal small bowel rectosigmoid colitis. No abscess, no free air. She did have a small amount of free fluid in her abdomen and pelvis, lobular liver with splenomegaly. No lymphadenopathy. Pancreas, adrenal glands, kidneys, and appendix appeared normal in appearance. HOSPITAL COURSE: Hospital course went really well. She was placed on metronidazole along with Cipro. Gave her aggressive IV fluids. This was eventually tapered off. She responded well clinically. Her white count continued to decrease 50% by one day normal upon discharge. Vital signs were stable. No hemodynamic instability. No signs of peritonitis or bowel perforation. T-max in the hospital low-grade 100.1. We advanced her diet. She did have a bowel movement. She did become slightly anemic at hemoglobin 10.0 with hematocrit 31.2, likely due to enteritis and stem cell production of white blood cell counts versus not producing red blood cells along with combination dilutional. Sodium 142, potassium 3.7, BUN and creatinine below normal. Threshold glucose 137. I was holding metformin. Calcium 7.8 pseudo. Total protein 2.62, likely due to anorexia. Lipase normal at 144. HCG was negative. Drawn due to high risk medications. Urinary tract infection, slightly cloudy on appearance, 40 ketones, trace occult blood. She is on menses. Bilirubin small, moderate epithelial cells with moderate bacteria. She had adequate intake and output. She was ambulatory in the halls. PHYSICAL EXAMINATION: VITAL SIGNS: On discharge, vital signs stable. CV: Regular rate and rhythm. LUNGS: Clear to auscultation. GI: She had improved bowel tones significantly on day 2 hospitalization. However, since advancing diet, decrease in bowel tones, however, overall feeling better. I believe she is stable to go home. MEDICATIONS: 1. Ciprofloxacin 500 mg p.o. b.i.d. 2. Metronidazole 500 mg p.o. q.8 hours. Continue holding metformin the next 48 hours. She can continue all other her home medications. DISPOSITION: The patient will be discharged from the hospital. Dietary instructions were given. Report any fevers, increased abdominal pain, or vomiting. Advance diet slowly with clear liquids today and soups and broth. She will follow up with her PCP early week. Do not return to work until cleared by the PCP. The patient likely will need a colonoscopy to rule out any inflammatory bowel disease likely in 3 weeks. Recommendations that followup repeating hemoglobin. /[id number]/MODL
== END 2017-10-18 12:30 | disposition home or self-care (01) | DRG 249 ==
LOC: KA.ED 14:51 → KA.MS 18:12
PROVIDERS: ADMIT Physician Assistant Medical; ATTEND Nurse Practitioner Family
DX: K52.9 Noninfective gastroenteritis and colitis, unspecified (principal); N30.00 Acute cystitis without hematuria; E86.0 Dehydration; D72.0 Genetic anomalies of leukocytes; E78.00 Pure hypercholesterolemia, unspecified; I10 Essential (primary) hypertension; K21.9 Gastro-esophageal reflux disease without esophagitis; F32.9 Major depressive disorder, single episode, unspecified; E11.9 Type 2 diabetes mellitus without complications; Z88.8 Allergy status to other drugs, medicaments and biological substances; Z88.2 Allergy status to sulfonamides; Z79.899 Other long term (current) drug therapy; Z79.82 Long term (current) use of aspirin; Z86.718 Personal history of other venous thrombosis and embolism
CPT/HCPCS: 36415; 74177; 80048; 80053; 81001; 82962; 83690; 84703; 85025; 96361; 96374; 96375; 99285; A9270-GY; J0744; J1170; J2405; J7030; J7050

== ENCOUNTER 2017-10-24 19:24 | Emergency (ER) | payer BC ==
[2017-10-24 19:44] VITALS: BP 167/95
[2017-10-24] MEDS ORDERED: Sodium Chloride 0.9% 1,000 ML IV ONE (20:06)
--- NOTE | 2017-10-24 20:17 | EDM.PDOC ---
ED HPI GENERAL MEDICAL PROBLEM - General Chief Complaint: Flank Pain Stated Complaint: PAIN Time Seen by Provider: 10/24/17 20:01 Source of Information: Reports: Patient History Limitations: Reports: No Limitations - History of Present Illness INITIAL COMMENTS - FREE TEXT/NARRATIVE: Patient is a 37-year-old female who presents to the emergency department this evening with a complaint of abdominal pain. Patient was seen here one week ago and admitted to the hospital for similar symptoms and was diagnosed with colitis. Onset: Gradual Onset Date: 10/24/17 Duration: Hour(s): Location: Reports: Abdomen Quality: Reports: Pressure Severity: Mild Improves with: Reports: None Worsens with: Reports: None Associated Symptoms: Reports: No Other Symptoms Right Flank Pain Score (Numeric/FACES): 7 - Related Data Allergies Allergy/AdvReac Type Severity Reaction Status Date / Time codeine Allergy Nausea and Verified 10/16/17 15:33 Vomiting Sulfa (Sulfonamide Allergy Rash Verified 10/16/17 15:33 Antibiotics) Home Meds: Home Meds Escitalopram [Lexapro] 20 mg PO BEDTIME 03/17/16 [History] metFORMIN [Glucophage] 750 mg PO BIDMEALS@,18 03/17/16 [History] Simvastatin 10 mg PO BEDTIME 07/19/16 [History] Ubidecarenone [Co Q-10] 100 mg PO BEDTIME 07/19/16 [History] sitaGLIPtin Phosphate [Januvia] 100 mg PO BEDTIME 07/19/16 [History] Aspirin [Ecotrin] 81 mg PO BEDTIME 10/16/17 [History] Lisinopril 20 mg PO BEDTIME 10/16/17 [History] Metoprolol Succinate [Toprol XL] 25 mg PO BEDTIME 10/16/17 [History] Norgestimate-Ethinyl Estradiol [Ortho Tri-Cyclen 28 Tablet] 1 tab PO BEDTIME [History] Past Medical History HEENT History: Reports: Impaired Vision Cardiovascular History: Reports: Blood Clots/VTE/DVT, High Cholesterol, Hypertension, Other (See Below) Other Cardiovascular History: blood clots in arm pit s/p picc line Respiratory History: Reports: Asthma Gastrointestinal History: Reports: Cholelithiasis, GERD, Hemorrhoids, Pancreatitis, Other (See Below) Other Gastrointestinal History: fatty liver (none etol related) recent diagnosis of colitis Genitourinary History: Reports: UTI, Recurrent SOLID PLASTERER History: Reports: Polycystic Ovaries Musculoskeletal History: Reports: Fracture Neurological History: Reports: Migraines Psychiatric History: Reports: Depression Endocrine/Metabolic History: Reports: Diabetes, Type II Hematologic History: Reports: Anesthesia Reaction - Infectious Disease History Infectious Disease History: Reports: Chicken Pox, Influenza, Meningitis, Mononucleosis - Past Surgical History Head Surgeries/Procedures: Reports: None HEENT Surgical History: Reports: Other (See Below) Other HEENT Surgeries/Procedures: wisdom teeth GI Surgical History: Reports: Cholecystectomy Musculoskeletal Surgical History: Reports: Arthroscopic Procedure Dermatological Surgical History: Reports: None Social & Family History - Family History Family Medical History: Noncontributory HEENT: Reports: None Cardiac: Reports: None Respiratory: Reports: None GI: Reports: None : Reports: None OBGYN: Reports: None Neurological: Reports: None Endocrine/Metabolic: Reports: Diabetes, type II - Tobacco Use Smoking Status *Q: Never Smoker Second Hand Smoke Exposure: Yes - Caffeine Use Caffeine Use: Reports: Coffee, Soda - Recreational Drug Use Recreational Drug Use: No ED ROS GENERAL - Review of Systems Review Of Systems: ROS reveals no pertinent complaints other than HPI. Constitutional: Reports: No Symptoms HEENT: Reports: No Symptoms Respiratory: Reports: No Symptoms Cardiovascular: Reports: No Symptoms Endocrine: Reports: No Symptoms GI/Abdominal: Reports: Abdominal Pain, Diarrhea : Reports: No Symptoms Musculoskeletal: Reports: No Symptoms Skin: Reports: No Symptoms Neurological: Reports: No Symptoms Psychiatric: Reports: No Symptoms Hematologic/Lymphatic: Reports: No Symptoms Immunologic: Reports: No Symptoms ED EXAM, GI/ABD - Physical Exam Exam: See Below Exam Limited By: No Limitations General Appearance: Alert, WD/WN, No Apparent Distress Throat/Mouth: Normal Inspection, Normal Oropharynx, No Airway Compromise Respiratory/Chest: No Respiratory Distress, Lungs Clear, Normal Breath Sounds, No Accessory Muscle Use, Chest Non-Tender Cardiovascular: Regular Rate, Rhythm, No Murmur GI/Abdominal Exam: Tender (left upper and lower quad), Abnormal Bowel Sounds ( hypoactive in all 4 quads). No: Distended, Guarding, Rigid, Rebound Back Exam: Normal Inspection. No: CVA Tenderness (L), CVA Tenderness (R) Extremities: Normal Inspection, No Pedal Edema Neurological: Alert, Oriented, Normal Cognition Psychiatric: Normal Affect, Normal Mood Skin Exam: Warm, Dry, Intact, Normal Color, No Rash Course - Vital Signs Last Recorded V/S: Last Vital Signs Temp 98.4 F 10/24/17 19:40 Pulse 98 10/24/17 19:40 Resp 20 10/24/17 19:40 BP 167/95 H 10/24/17 19:40 Pulse Ox 98 10/24/17 19:40 - Orders/Labs/Meds Orders: Active Orders 24 hr Category Date Time Status Abdomen 2V AP Upright Decub [CR] Stat Exams 10/24/17 19:46 Ordered COMPREHENSIVE METABOLIC PN,CMP [CHEM] Stat Lab 10/24/17 19:55 Received LIPASE [CHEM] Stat Lab 10/24/17 20:06 Ordered QUANTITATIVE BHCG [REF] Stat Lab 10/24/17 20:06 Ordered UA W/MICROSCOPIC [URIN] Stat Lab 10/24/17 19:46 Ordered Sodium Chloride 0.9% @ 999 MLS/HR (1000ml) Med 10/24/17 20:06 Ordered Sodium Chloride 0.9% [Normal Saline] 1,000 ml IV .BOLUS Medication Orders Sodium Chloride (Normal Saline) 1,000 mls @ 999 mls/hr IV .BOLUS ONE Stop: 10/24/17 21:06 Labs: Laboratory Tests 10/24/17 Range/Units 19:55 WBC 11.3 H (5.0-10.0) 10^3/uL RBC 4.44 (3.80-5.50) 10^6/uL Hgb 12.6 D (12.0-16.0) g/dL Hct 38.4 (37.0-47.0) % MCV 86.5 (82.0-92.0) fL MCH 28.2 (27.0-31.0) pg MCHC 32.6 (32.0-36.0) g/dL RDW 14.4 (11.5-14.5) % Plt Count 205 (150-300) 10^3/uL MPV 7.6 (7.4-10.4) fL Neut % (Auto) 72.1 H (50.0-70.0) % Lymph % (Auto) 17.3 L (20.0-40.0) % [place] % (Auto) 7.3 (2.0-8.0) % Eos % (Auto) 2.6 (1.0-3.0) % Baso % (Auto) 0.7 (0.0-1.0) % Neut # (Auto) 8.1 H (2.5-7.0) 10^3/uL Lymph # (Auto) 2.0 (1.0-4.0) 10^3/uL [place] # (Auto) 0.8 (0.1-0.8) 10^3/uL Eos # (Auto) 0.3 (0.1-0.3) 10^3/uL Baso # (Auto) 0.1 (0.0-0.1) 10^3/uL Meds: Medications Generic Name Dose Route Start Last Admin Trade Name Freq PRN Reason Stop Dose Admin Sodium Chloride 1,000 mls @ 999 mls/hr 10/24/17 20:06 Normal Saline IV 10/24/17 21:06 .BOLUS ONE - Radiology Interpretation Free Text/Narrative:: Abdomen and pelvis. Plain films shows no acute findings. - Re-Assessments/Exams Free Text/Narrative Re-Assessment/Exam: 10/24/17 21:39 Patient afebrile, nontoxic appearing, vital signs stable. Abdominal discomfort subsided. Patient given Bentyl and Reglan and in ER. She'll be sent home with Bentyl and have follow-up with PCP in 2-3 days. Departure - Departure Time of Disposition: 22:01 Disposition: Home, Self-Care 01 Condition: Good Clinical Impression: Colitis Abdominal pain Qualifiers: Abdominal location: generalized Qualified Code(s): R10.84 - Generalized abdominal pain - Discharge Information Instructions: Abdominal Pain, Adult, [id number], Colitis Referrals: Eryn Bar, [employer] [Primary Care Provider] - Additional Instructions: Follow-up at [facility] in 2-3 days. Return to emergency from sooner if symptoms continue or worsen. - My Orders Last 24 Hours: My Active Orders 10/24/17 19:46 Abdomen 2V AP Upright Decub [CR] Stat UA W/MICROSCOPIC [URIN] Stat 10/24/17 19:55 COMPREHENSIVE METABOLIC PN,CMP [CHEM] Stat 10/24/17 20:06 LIPASE [CHEM] Stat QUANTITATIVE BHCG [REF] Stat Sodium Chloride 0.9% @ 999 MLS/HR (1000ml) Sodium Chloride 0.9% [Normal Saline] 1,000 ml IV .BOLUS - Assessment/Plan Last 24 Hours: My Active Orders 10/24/17 19:46 Abdomen 2V AP Upright Decub [CR] Stat UA W/MICROSCOPIC [URIN] Stat 10/24/17 19:55 COMPREHENSIVE METABOLIC PN,CMP [CHEM] Stat 10/24/17 20:06 LIPASE [CHEM] Stat QUANTITATIVE BHCG [REF] Stat Sodium Chloride 0.9% @ 999 MLS/HR (1000ml) Sodium Chloride 0.9% [Normal Saline] 1,000 ml IV .BOLUS Assessment:: Abdominal pain, colitis Plan: Follow-up with PCP in 2-3 days
[2017-10-24] MEDS ORDERED: Metoclopramide 10 MG/2 ML SDV IVPUSH ONE (21:36)
[2017-10-24] MEDS ORDERED: Dicyclomine 10 MG Cap PO ONE ×2 (21:36→22:00)
== END 2017-10-24 22:10 | disposition home or self-care (01) ==
LOC: KA.ED 19:24
DX: K52.9 Noninfective gastroenteritis and colitis, unspecified (principal); I10 Essential (primary) hypertension; E78.00 Pure hypercholesterolemia, unspecified; E11.9 Type 2 diabetes mellitus without complications; Z88.5 Allergy status to narcotic agent; Z88.2 Allergy status to sulfonamides; Z79.84 Long term (current) use of oral hypoglycemic drugs; Z79.82 Long term (current) use of aspirin; Z79.899 Other long term (current) drug therapy
CPT/HCPCS: 36415; 74021; 80053; 81001; 81025; 83690; 85025; 96361; 96374; 99284; A9270; J2765; J7030